=== PATIENT | female | born 1930 | race Caucasian/White ===

== ENCOUNTER 2016-05-06 05:51 | Day surgery (SDC) | payer MEDICARE ==
[2016-05-02 10:24] LABS: HEMATOCRIT 39.3 % (36.0-48.0); HEMOGLOBIN 12.5 g/dL (12.0-16.0)
--- NOTE | ~2016-05-06 | OP ---
Record Of Operation [facility] [address] [place]. [address] NAME: TAIWO VINCENT : 34 STATUS : [facility]#: [id number] AGE: 85 ADM/REG DATE : 05/06/16 MR#: [id number] REPORT SERV DATE: 05/06/16 DICTATED BY: DEREK FRANCIS DATE: 05/06/16 REPORT STATUS : Draft TRANSCRIBED BY: LEONARD DATE: 05/06/16 DATE OF PROCEDURE: 05/06/2016 ANESTHESIA: General. COMPLICATIONS: None. ESTIMATED BLOOD LOSS: None. PREOPERATIVE DIAGNOSES: 1. Bladder pain syndrome. 2. Interstitial cystitis. 3. Overactive bladder. POSTOPERATIVE DIAGNOSES: 1. Bladder pain syndrome. 2. Interstitial cystitis. 3. Overactive bladder. OPERATION: Intravesical Botox injection with 200 units of Botox. PROCEDURE IN DETAIL: The patient was taken to the operating room and placed on the operating table in Dariusz stirrups. After adequate anesthesia, the patient was prepped and draped in usual sterile fashion. Cystoscopy was performed with water as a filling media. 200 units of Botox were injected just beneath the bladder mucosa and multiple different areas across the posterior bladder wall above the trigone. The patient tolerated the procedure well. Hemostasis was good. The patient went to recovery room in stable condition. ZULEIKA Derek Francis M.D. / [id number] CC: Marcella Gibson M.D.
[~2016-05-06 05:51] MED LIST: ASAB PO; BIOTIN PO; CENTRUM PO; DCN100 PO; DSS PO; ESTER-C500 MG PO; FISH OIL1200 MG PO; FLAGYL PO; FLEX PO; FORMULA PO; GLUCCHONDR PO; JOINT HEALT1 PO; MIRALAX POWDER1 PKT PO; MULTIVIT/MIN PO; NIASPAN750 PO; NITRO-TIME2.5 MG PO; NITROQUICK0.4 MG SL; NITROSTAT0.4 MG SL; NOLV10 PO; OS500+D PO; PCET PO; PRAVACHOL40 MG PO; PRILO PO; STOOL SOFTEN240 MG PO; STOOL SOFTENER; VESICARE5 PO; VITAMIN B-121000 MC1 SL; VITAMIN C1000 MG PO; VITAMIN D PO; VITAMIN D2000 UNIT PO; VITC500 PO; [UNRECOGNIZED DRUG - OTHER] TOP
[2016-05-06 06:57] LABS: CHLORIDE, SERUM 108 MMOL/L (96-112); CO2 (CARBON DIOXIDE) 28 MMOL/L (24-34); CREATININE 1.25 MG/DL (0.55-1.02); GFR AFRICAN AMERICAN 46 ML/MIN (>=60); GFR NON AFRICAN AMERICAN 40 ML/MIN (>=60); GLUCOSE, SERUM 102 MG/DL (60-99); POTASSIUM, SERUM 4.2 MMOL/L (3.5-5.3); SODIUM, SERUM 143 MMOL/L (135-148)
[2016-05-06 07:01] LABS: BUN (BLOOD UREA NITROGEN) 28 MG/DL (6-23)
[2016-05-06 07:02] LABS: CALCIUM, SERUM 8.9 MG/DL (8.5-10.4)
== END 2016-05-06 12:21 | disposition home or self-care (01) ==
LOC: SDC 05:51
PROVIDERS: Obstetrics & Gynecology Gynecology
PROC: 3E0K8GC Introduction of Other Therapeutic Substance into Genitourinary Tract, Via Natural or Artificial Opening Endoscopic (ICD-10-PCS; principal; 2016-05-06 07:15)
DX: N30.10 Interstitial cystitis (chronic) without hematuria (principal); R39.89 Other symptoms and signs involving the genitourinary system; N32.81 Overactive bladder; I10 Essential (primary) hypertension; E78.5 Hyperlipidemia, unspecified; K21.9 Gastro-esophageal reflux disease without esophagitis; M19.90 Unspecified osteoarthritis, unspecified site; Z88.0 Allergy status to penicillin; Z88.2 Allergy status to sulfonamides; Z88.8 Allergy status to other drugs, medicaments and biological substances; Z88.5 Allergy status to narcotic agent; Z91.040 Latex allergy status
CPT/HCPCS: 80048; 85014; 85018; 93005; J0360; J0585; J2270; J2405; J3010